=== PATIENT | male | born 1975 | race Caucasian/White ===

== ENCOUNTER 2016-12-17 09:26 | Emergency (ER) | payer BC ==
[2016-12-17 11:48] VITALS: BP 127/75
[2016-12-17] MEDS ORDERED: predniSONE TAB* 20 MG PO ONE (11:55)
--- NOTE | 2016-12-17 12:30 | UC ---
Throat Pain/Nasal Don HPI - HPI Summary HPI Summary: patient has had a dol for a few days, started feeling dizzy and felt like his right ear was clogged. no fever. has not taken OTC medications - History of Current Complaint Chief Complaint: UCGeneralIllness Stated Complaint: RIGHT EAR COMPLAINT,DIZZY Time Seen by Provider: 12/17/16 11:43 Hx Obtained From: Patient Onset/Duration: Sudden Onset, Lasting Days Severity: Moderate Pain Intensity: 5 Pain Scale Used: 0-10 Numeric Cough: None Associated Signs & Symptoms: Positive: Sinus Discomfort, Nasal Discharge - Epiglottits Risk Factors Epiglottis Risk Factors: Negative - Allergies/Home Medications Allergies/Adverse Reactions: Allergies Allergy/AdvReac Type Severity Reaction Status Date / Time No Known Allergies Allergy Verified 03/28/14 16:26 PMH/Surg Hx/FS Hx/Imm Hx Previously Healthy: Yes - Surgical History Surgical History: None - Family History Known Family History: Negative: Cardiac Disease, Hypertension - Social History Alcohol Use: Daily Alcohol Amount: 1 beer/daily Substance Use Type: None, Marijuana Substance Use Comment - Amount & Last Used: 1100 today Smoking Status (MU): Never Smoked Tobacco Review of Systems Constitutional: Negative Skin: Negative Eyes: Negative ENT: Ear Ache, Nasal Discharge Respiratory: Negative Cardiovascular: Negative Gastrointestinal: Negative Genitourinary: Negative Motor: Negative Neurovascular: Negative Musculoskeletal: Negative Neurological: Other - dizzy Psychological: Negative All Other Systems Reviewed And Are Negative: Yes Physical Exam Triage Information Reviewed: Yes Appearance: Well-Appearing, Well-Nourished, Pain Distress Vital Signs: Initial Vital Signs Temp 97.4 F 12/17/16 11:35 Pulse 63 12/17/16 11:35 Resp 16 12/17/16 11:35 BP 127/75 12/17/16 11:35 Pulse Ox 100 12/17/16 11:35 Vital Signs Reviewed: Yes Eye Exam: Normal Eyes: Positive: Conjunctiva Clear ENT: Positive: Hearing grossly normal, Pharyngeal erythema, Nasal congestion, Nasal drainage, Other: - left cernumen impaction, rigth TM dull Dental Exam: Normal Neck exam: Normal Neck: Positive: Supple, Nontender, No Lymphadenopathy Respiratory Exam: Normal Respiratory: Positive: Chest non-tender, Lungs clear, Normal breath sounds Cardiovascular Exam: Normal Cardiovascular: Positive: RRR, No Murmur, Pulses Normal Abdominal Exam: Normal Abdomen Description: Positive: Nontender, No Organomegaly, Soft Bowel Sounds: Positive: Present Musculoskeletal Exam: Normal Musculoskeletal: Positive: Strength Intact, ROM Intact, No Edema Neurological Exam: Normal Neurological: Positive: Alert, Muscle Tone Normal Psychological Exam: Normal Skin Exam: Normal Throat Pain/Nasal Course/Dx - Course Course Of Treatment: hx obtained, exam performed, left ear irrigatied with good results, no sign of infection. prednisone given for sinus congestion, recommend daily decongestant for 2 weeks. - Differential Dx/Diagnosis Differential Diagnosis/HQI/PQRI: Influenza, Laryngitis, Otitis Media, Pharyngitis, Sinusitis, Tonsillitis, URI Provider Diagnoses: sinus congestion. cerumen impaction Discharge - Discharge Plan Condition: Stable Disposition: HOME Patient Education Materials: Cerumen Impaction (ED) Additional Instructions: today yur ears are clear of infection, serous fluid noted behind right ear. take the prednisone as prescribed and daily decongestant such as claritin D daily for 2 weeks. follow up with any worsening symptoms.
== END 2016-12-17 12:46 | disposition home or self-care (01) ==
LOC: UCCORT 09:26
DX: R09.81 Nasal congestion (principal); H61.22 Impacted cerumen, left ear; F12.90 Cannabis use, unspecified, uncomplicated
CPT/HCPCS: 99213; G0463; J7512